=== PATIENT | male | born 1995 | race Hispanic/Latino ===

== ENCOUNTER 2019-04-08 14:38 | Emergency (ER) | payer SELFPAY ==
[2019-04-08] MEDS ORDERED: NAPROXEN 500 MG TABLET ONE (15:20)
[2019-04-08] MEDS ORDERED: CEPHALEXIN 500 MG CAPSULE ONE (15:20)
== END 2019-04-08 16:43 | disposition home or self-care (01) ==
LOC: EDH 14:38
DX: M77.9 Enthesopathy, unspecified (principal); M25.532 Pain in left wrist